=== PATIENT | male | born 1950 | race Caucasian/White ===

== ENCOUNTER → 2021-04-20 | Outpatient (CLI) | payer OTHER | LOC: SJCVCIMAG 12:51 | PROVIDERS: ATTEND Internal Medicine Cardiovascular Disease | DX: I08.1 Rheumatic disorders of both mitral and tricuspid valves (principal); R94.31 Abnormal electrocardiogram [ECG] [EKG]; R00.0 Tachycardia, unspecified; R93.1 Abnormal findings on diagnostic imaging of heart and coronary circulation; I77.9 Disorder of arteries and arterioles, unspecified; I48.91 Unspecified atrial fibrillation; R55 Syncope and collapse; I25.10 Atherosclerotic heart disease of native coronary artery without angina pectoris; R73.9 Hyperglycemia, unspecified; E78.5 Hyperlipidemia, unspecified; Z88.0 Allergy status to penicillin; Z79.82 Long term (current) use of aspirin; Z79.899 Other long term (current) drug therapy; Z72.89 Other problems related to lifestyle; Z87.891 Personal history of nicotine dependence ==

== ENCOUNTER → 2021-05-19 | Outpatient (CLI) | payer OTHER ==
[~2021-05-19] VITALS: Ht 190.5 cm; Wt 94.0 kg
[2021-05-19 07:17] VITALS: BP 115/77
--- NOTE | 2021-05-19 09:51 | TEE ---
[facility] [place] [address] TRANSESOPHAGEAL ECHOCARDIOGRAM Name: JAC CURTIS Room #: REG [facility]#: [id number] Admission: 05/19/21 Attend Phys: Olvin Mendoza MD, Discharge: Date of : 46 Report #: [id number] THIS REPORT FOR: cc: NO FAMILY PHYSICIAN or PCP NO FAMILY PHYSICIAN or PCP Olvin Mendoza MD [facility] ~ APPROVED REPORT Study performed: 05/19/2021 08:45:44 EXAM: Comprehensive 2D, Doppler, and color-flow Echocardiogram Patient Location: Out-Patient Room #: 11 Status: routine BSA: 2.23 HR: 120 bpm BP: 104/65 mmHg Rhythm: Atrial Fibrillation Other Information Study Quality: Good Indications Atrial Fibrillation Echo Enhancing Agent Indication: Rule out Shunt Agent(s) / Amount(s) Used: Agitated Saline 7 cc Procedure After obtaining informed consent, patient underwent transesophageal echo in the [employer]. Type of Sedation : Conscious Sedation Sedation was administered by Nurse. Sedation start time: 849 Case end Time: 854 Sedation was achieved intravenously with: Versed (5mg) Fentanyl (75mcg) Transesophageal probe was inserted and advanced into esophagus without difficulty by Olvin Mendoza MD. Echo enhancement indication: R/O Septal defect. Echo enhancement agent administered: Agitated Saline The CATARINA was performed without complications. Synchronized Cardioversion acheived with 120 Joules after 1 [facility] [address] [address] TRANSESOPHAGEAL ECHOCARDIOGRAM Name: JAC CURTIS Room #: REG [facility]#: [id number] Admission: 05/19/21 Attend Phys: Olvin Mendoza, Discharge: Date of : 46 Report #: [id number] attempt(s). Rhythm following Synchronized Cardioversion: Sinus Bradycardia Throughout the procedure, the blood pressure, pulse oximetry, cardiac rhythm, and rate were monitored. The patient tolerated the procedure without adverse effects. Recovery from conscious sedation was uneventful and vital signs were stable. Left Ventricle The left ventricle is normal size. There is normal left ventricular wall thickness. Left ventricular ejection fraction is severely decreased. LVEF is 20-25%. Right Ventricle The right ventricle is normal size. The right ventricular systolic function is normal. Atria Left atrium is dilated. The right atrium size is normal. Aortic Valve The aortic valve is normal in structure. No aortic regurgitation is present. There is no aortic valvular stenosis. Mitral Valve The mitral valve is normal in structure. Mild mitral regurgitation. No evidence of mitral valve stenosis. Tricuspid Valve The tricuspid valve is normal in structure. There is no tricuspid valve regurgitation noted. Pulmonic Valve The pulmonary valve is normal in structure. There is no pulmonic valvular regurgitation. Great Vessels The aortic root is normal in size. Pericardium There is no pericardial effusion. <Conclusion> Consent was obtained Timeout performed After appropriate sedation, esophageal probe was advanced without [facility] [address] [place] [address] TRANSESOPHAGEAL ECHOCARDIOGRAM Name: JAC CURTIS Room #: REG [facility]#: [id number] Admission: 05/19/21 Attend Phys: Olvin Mendoza, Discharge: Date of : 46 Report #: [id number] difficulty Left atrial appendage, moderate size, no obvious mass or clot detected Moderate left atrial enlargement Normal left ventricle size/wall thickness Ejection fraction 20-25%/global hypokineses Normal right ventricular size/function Normal aortic valve structure and function Mild mitral valve insufficiency No tricuspid valve insufficiency No pericardial effusion Aorta no calcification detected No evidence of ASD/VSD by color flow/bubble study Patient successfully cardioverted to sinus rhythm after 120 J in a biphasic mode Patient tolerated procedure well Twelve-lead ECG pending <ELECTRONICALLY SIGNED> By: Olvin Mendoza MD, FACC 05/19/2151 0 0 Olvin Mendoza MD, FACC /INF
--- NOTE | 2021-05-19 17:21 | EKG ---
[place] [address] [facility] [place] [address] ELECTROCARDIOGRAM REPORT Name: JAC CURTIS Room #: REG [facility]#: [id number] Admission: 05/19/21 Attend Phys: Ovlin Mendoza MD, Discharge: Date of : 46 Report #: [id number] [facility] Test Date: 2021-05-19 Test Time: 09:07:38 Pat Name: JAC CURTIS Department: Room: Gender: Clinical Scientist: [facility] : 1950 Requested By: Olvin Mendoza Order Number: [id number] MD: Yan Parham Measurements Intervals [place] Rate: 49 P: 34 [place]: 179 QRS: -19 QRSD: 112 T: -13 QT: 455 QTc: 411 Interpretive Statements Sinus bradycardia Incomplete right bundle branch block Left ventricular hypertrophy No previous ECG available for comparison Electronically Signed On 05-19-2021 17:21:25 [employer] by Yan Parham [email or web address] <ELECTRONICALLY SIGNED> By: Yan Parham MD, [facility] 05/19/21 1721 0907 6 Yan Parham MD, FACC /EPI
== END | disposition home or self-care (01) ==
LOC: CATH 06:30
PROVIDERS: ATTEND Internal Medicine
DX: I48.91 Unspecified atrial fibrillation (principal); I34.9 Nonrheumatic mitral valve disorder, unspecified; E78.00 Pure hypercholesterolemia, unspecified; E78.5 Hyperlipidemia, unspecified; I50.9 Heart failure, unspecified; Z98.890 Other specified postprocedural states; Z79.899 Other long term (current) drug therapy; Z79.01 Long term (current) use of anticoagulants

== ENCOUNTER → 2021-05-25 | Outpatient (CLI) | payer OTHER | END | disposition home or self-care (01) | LOC: SJCVCIMAG 07:00 | PROVIDERS: ATTEND Internal Medicine Cardiovascular Disease | DX: R94.31 Abnormal electrocardiogram [ECG] [EKG] (principal); I65.23 Occlusion and stenosis of bilateral carotid arteries; R00.1 Bradycardia, unspecified; I48.92 Unspecified atrial flutter; R93.1 Abnormal findings on diagnostic imaging of heart and coronary circulation; I42.9 Cardiomyopathy, unspecified; D68.59 Other primary thrombophilia; I77.9 Disorder of arteries and arterioles, unspecified; I25.10 Atherosclerotic heart disease of native coronary artery without angina pectoris; E78.5 Hyperlipidemia, unspecified; E78.00 Pure hypercholesterolemia, unspecified; Z87.891 Personal history of nicotine dependence; Z72.89 Other problems related to lifestyle; Z79.899 Other long term (current) drug therapy; Z79.82 Long term (current) use of aspirin; Z88.0 Allergy status to penicillin ==

== ENCOUNTER → 2021-06-17 | Outpatient (CLI) | payer OTHER | LOC: SJCVCIMAG 08:07 | PROVIDERS: ATTEND Internal Medicine Cardiovascular Disease | DX: I49.3 Ventricular premature depolarization (principal); I48.91 Unspecified atrial fibrillation; I42.9 Cardiomyopathy, unspecified ==